=== PATIENT | male | born 1995 | race Caucasian/White ===

== ENCOUNTER 2021-07-16 15:09 | Emergency (ER) | payer SELFPAY ==
[2021-07-16 15:16] VITALS: BP 103/71; PULSE 89; TEMP 99.2; BMI 19.2
== END 2021-07-16 15:48 | disposition home or self-care (01) ==
LOC: JER 15:09
DX: B34.9 Viral infection, unspecified (principal)
CPT/HCPCS: 87651; 87804; 99283-25; C9803; U0003; U0005